=== PATIENT | female | born 1945 | race Caucasian/White ===

== ENCOUNTER 2019-02-16 17:13 | Inpatient (IN) | payer OTHER, MEDICARE | END 2019-02-21 18:43 | disposition home or self-care (01) | LOC: JER 17:13 → JERBED 19:31 → J6S 23:51 ==

== ENCOUNTER 2019-08-12 08:44 | Day surgery (SDC) | payer OTHER, MEDICARE ==
[2019-08-12 09:31] VITALS: BMI 27.4
[2019-08-12 11:11] VITALS: TEMP 98
[2019-08-12 12:10] VITALS: BP 115/73; PULSE 88
--- NOTE | 2019-08-13 18:38 | PATH ---
Surgical Pathology Report Patient Name: RUDDY WOODALL [facility]. Rec. #: [id number] /Age/Gender: 1945 (Age: 73) / F Account: [id number] Location: [facility]-ENDOSCOPY Taken: 08/12/2019 Received: 08/12/2019 Reported: 08/13/2019 Physicians: Benjamin Vick D.O. Specimen(s) Received RECTAL POLYP Clinical History Screening colonoscopy Postoperative diagnosis: Hemorrhoids, rectal polyps, diverticulosis Final Diagnosis RECTAL POLYP, BIOPSY: HYPERPLASTIC POLYP. Electronically Signed Darline Maki M.D. Gross Description Received in formalin, labeled "rectal polyp" is a sun, irregular portion of soft tissue measuring 0.5 cm. in greatest dimension. The specimen is submitted in toto in one cassette. MLSZ/08/12/2019 [facility]/08/12/2019
== END 2019-08-12 12:06 | disposition home or self-care (01) ==
LOC: JASU-ENDO 08:44
PROVIDERS: ATTEND Internal Medicine Gastroenterology
PROC: 0DBP8ZX Excision of Rectum, Via Natural or Artificial Opening Endoscopic, Diagnostic (ICD-10-PCS; principal; 2019-08-12 09:00)
DX: Z12.11 Encounter for screening for malignant neoplasm of colon (principal); K62.1 Rectal polyp; K64.8 Other hemorrhoids; K57.30 Diverticulosis of large intestine without perforation or abscess without bleeding
CPT/HCPCS: 88305-TC

== ENCOUNTER 2019-08-26 09:11 | Day surgery (SDC) | payer OTHER, MEDICARE ==
[2019-08-25 16:31] VITALS: BMI 26.6
[2019-08-26 11:17] VITALS: TEMP 97.5
[2019-08-26 11:23] VITALS: PULSE 78
[2019-08-26 11:53] VITALS: BP 123/64
--- NOTE | 2019-08-27 17:15 | PATH ---
Cytology Non-Gynecological Report Patient Name: RUDDY WOODALL [facility]. Rec. #: [id number] /Age/Gender: 1945 (Age: 73) / F Account: [id number] Location: [facility]-ENDOSCOPY Taken: 08/26/2019 Received: 08/26/2019 Reported: 08/27/2019 Physicians: Benjamin Vick D.O. Specimen(s) Received ESOPHAGEAL BRUSHING Clinical History Rule out Tonya Final Diagnosis ESOPHAGEAL BRUSHING: SATISFACTORY FOR EVALUATION. NEGATIVE FOR MALIGNANCY. BENIGN SQUAMOUS CELLS MIXED WITH ACUTE INFLAMMATION; FUNGAL HYPHAE CONSISTENT WITH TONYA SPECIES IDENTIFIED. Electronically Signed Preet Boyle M.D. Gross Description Two slides and one brush received. Four pap smear slides prepared.
--- NOTE | 2019-08-28 14:53 | PATH ---
Surgical Pathology Report Patient Name: RUDDY WOODALL [facility]. Rec. #: [id number] /Age/Gender: 1945 (Age: 73) / F Account: [id number] Location: [facility]ENDOS[facility] Taken: 08/26/2019 Received: 08/26/2019 Reported: 08/28/2019 Physicians: Benjamin Vick D.O. Specimen(s) Received A: ANTRAL NODULE B: GASTRIC POLYPS, FUNDUS/BODY Clinical History Upper abdominal pain Postoperative diagnosis: Esophagitis, gastric polyps Final Diagnosis A. 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 NO DYSPLASIA IDENTIFIED. IMMUNOHISTOCHEMICAL STAIN FOR H. PYLORI IS NEGATIVE. B. GASTRIC POLYPS, FUNDUS/BODY, BIOPSY: FUNDIC GLAND POLYP(S). IMMUNOHISTOCHEMICAL STAIN FOR H. PYLORI IS NEGATIVE. Immunohistochemical stains performed at [place], [place] ([id number]) and interpreted at [facility]. Positive and negative controls (internal if applicable) show appropriate results. Electronically Signed Darline Maki M.D. Gross Description A. Received in formalin, labeled "antral nodule biopsy" are 2 sun, irregular portions of soft tissue measuring 0.2 and 0.3 cm. in greatest dimension. The specimens are submitted in toto in one cassette. B. Received in formalin, labeled "gastric polyps biopsy" are 7 sun, irregular portions of soft tissue ranging from 0.1-0.5 cm. in greatest dimension. The specimens are submitted in toto in one cassette. 08/26/2019 [facility]08/26/2019
== END 2019-08-26 12:08 | disposition home or self-care (01) ==
LOC: JASU-ENDO 09:11
PROVIDERS: ATTEND Internal Medicine Gastroenterology
PROC: 0DB68ZX Excision of Stomach, Via Natural or Artificial Opening Endoscopic, Diagnostic (ICD-10-PCS; principal; 2019-08-26 09:45)
DX: R10.13 Epigastric pain (principal); K31.7 Polyp of stomach and duodenum; K29.50 Unspecified chronic gastritis without bleeding
CPT/HCPCS: 88104

== ENCOUNTER 2023-01-05 03:55 | Day surgery (SDC) | payer OTHER, MEDICARE ==
[2023-01-03 15:41] VITALS: BMI 25.4
[2023-01-05] MEDS ORDERED: DEXAMETHASONE SOD PHOSPHATE 10 MG/1 ML VIAL ONE (07:20)
[2023-01-05] MEDS ORDERED: LIDOCAINE HCL/PF 1% SDV 5ML VIAL ONE (07:20)
[2023-01-05] MEDS ORDERED: DEXAMETHASONE SOD PHOSPHATE 4 MG/1 ML VIAL ONE (07:20)
[2023-01-05] MEDS ORDERED: ACETAMINOPHEN 500 MG TABLET (FP) PO PRN (11:26)
[2023-01-05] MEDS ORDERED: LIDOCAINE HCL 1% PRESERVATIVE FREE - 30ML VIAL IJ ONE (11:56)
[2023-01-05] MEDS ORDERED: IOHEXOL 180 MG/1 ML ML IJ ONE (11:56)
[2023-01-05] MEDS ORDERED: DEXAMETHASONE SOD PHOSPHATE 10 MG/1 ML VIAL IVPUSH ONE (11:56)
[2023-01-05] MEDS ORDERED: ACETAMINOPHEN 500 MG TABLET (FP) ONE (12:32)
[2023-01-05 13:17] VITALS: BP 126/80; PULSE 84; RESP 18; TEMP 98
== END 2023-01-05 13:10 | disposition home or self-care (01) ==
LOC: JASU-SURG 03:55
PROVIDERS: ATTEND Pain Medicine Pain Medicine
PROC: 3E0R3BZ Introduction of Anesthetic Agent into Spinal Canal, Percutaneous Approach (ICD-10-PCS; 2023-01-05)
PROC: 3E0R33Z Introduction of Anti-inflammatory into Spinal Canal, Percutaneous Approach (ICD-10-PCS; principal; 2023-01-05 12:15)
DX: M54.12 Radiculopathy, cervical region (principal)
CPT/HCPCS: 76000-TC-FY; J1100

== ENCOUNTER 2023-02-05 19:33 | Emergency (ER) | payer OTHER, MEDICARE ==
[2023-02-05 19:57] VITALS: BP 133/72; PULSE 88; RESP 20; TEMP 98.2; BMI 25.4
== END 2023-02-05 22:24 | disposition left against medical advice (07) ==
LOC: JER 19:33
DX: R05.9 Cough, unspecified (principal); J18.9 Pneumonia, unspecified organism
CPT/HCPCS: 99281-25

== ENCOUNTER 2023-02-06 13:40 | Emergency (ER) | payer OTHER, MEDICARE ==
[2023-02-06 13:54] VITALS: BMI 25.4
[2023-02-06] MEDS ORDERED: AZITHROMYCIN 250 MG TABLET PO ONE (15:45)
[2023-02-06] MEDS ORDERED: AZITHROMYCIN 500 MG TABLET ONE (16:14)
[2023-02-06 17:42] VITALS: BP 140/62; PULSE 83; RESP 16; TEMP 97.8
== END 2023-02-06 17:45 | disposition home or self-care (01) ==
LOC: JER 13:40
DX: R05.9 Cough, unspecified (principal); J18.9 Pneumonia, unspecified organism; J45.901 Unspecified asthma with (acute) exacerbation
CPT/HCPCS: 71046-TC-FY; 99283-25

== ENCOUNTER → 2023-02-06 | Day surgery (SDC) | payer OTHER, MEDICARE ==
[2023-01-31 14:46] VITALS: BMI 25.4
[~2023-02-06] MED LIST: ACETAMINOPHEN 500 MG TABLET (FP) PO PRN; DEXAMETHASONE SOD PHOSPHATE 10 MG/1 ML VIAL ONE; DEXAMETHASONE SOD PHOSPHATE 4 MG/1 ML VIAL ONE; LIDOCAINE HCL 1% PRESERVATIVE FREE - 30ML VIAL IJ ONE; LIDOCAINE HCL/PF 1% SDV 5ML VIAL ONE
== END | disposition home or self-care (01) ==
LOC: JASU-SURG 05:15
PROVIDERS: ATTEND Pain Medicine Pain Medicine
DX: Z53.8 Procedure and treatment not carried out for other reasons (principal)
CPT/HCPCS: J1100

== ENCOUNTER 2023-02-16 05:05 | Day surgery (SDC) | payer OTHER, MEDICARE ==
[2023-02-12 11:35] VITALS: BMI 25.4
[2023-02-16] MEDS ORDERED: ACETAMINOPHEN 500 MG TABLET (FP) PO PRN (08:53)
[2023-02-16] MEDS ORDERED: DEXAMETHASONE SOD PHOSPHATE 10 MG/1 ML VIAL IM ONE (11:29)
[2023-02-16] MEDS ORDERED: IOHEXOL 180 MG/1 ML ML IJ ONE (11:32)
[2023-02-16] MEDS ORDERED: LIDOCAINE HCL 1% PRESERVATIVE FREE - 30ML VIAL IJ ONE (11:32)
[2023-02-16 13:29] VITALS: BP 126/70; PULSE 81; RESP 18; TEMP 97.9
== END 2023-02-16 12:15 | disposition home or self-care (01) ==
LOC: JASU-SURG 05:05
PROVIDERS: ATTEND Pain Medicine Pain Medicine
PROC: 3E0R3BZ Introduction of Anesthetic Agent into Spinal Canal, Percutaneous Approach (ICD-10-PCS; 2023-02-16)
PROC: 3E0R33Z Introduction of Anti-inflammatory into Spinal Canal, Percutaneous Approach (ICD-10-PCS; principal; 2023-02-16 11:15)
DX: M54.12 Radiculopathy, cervical region (principal)
CPT/HCPCS: 76000-TC-FY; J1100

== ENCOUNTER 2023-08-15 01:44 | Inpatient (IN) | payer OTHER, MEDICARE ==
[2023-08-15] MEDS ORDERED: ACETAMINOPHEN INJECTION 100 ML IVPB ONE (03:09)
[2023-08-15 03:30] LABS: URINE APPEARANCE CLEAR; URINE BILIRUBIN NEGATIVE (NEGATIVE); URINE COLOR YELLOW; URINE GLUCOSE (UA) NEGATIVE (NEGATIVE); URINE KETONE NEGATIVE (NEGATIVE); URINE LEUK ESTERASE NEGATIVE (NEGATIVE); URINE NITRITE NEGATIVE (NEGATIVE); URINE PROTEIN NEGATIVE (NEGATIVE); URINE UROBILINOGEN 0.2 mg/dL (0.2-1.0)
[2023-08-15] MEDS: ACETAMINOPHEN 1000 MG/100 ML BAG IVPB ONE (04:12)
[2023-08-15 04:24] LABS: BASO % 0.5 % (0-2.0); EOS % 7.5 % (0-4.5); HEMATOCRIT 40.9 % (32.4-45.2); HEMOGLOBIN 13.9 GM/dL (10.7-15.3); LYMPH % 24.7 % (8-40); MCH 29.9 pg (25.7-33.7); MEAN CELL VOLUME 88.1 fl (80-96); MEAN PLT VOLUME 7.6 fl (7.5-11.1); MONO % 8.9 % (3.8-10.2); NEUT % 58.4 % (42.8-82.8); PLATELET COUNT 244 10^3/uL (134-434); RBC 4.64 M/mm3 (3.60-5.2); RDW 14.4 % (11.6-15.6); WHITE BLOOD COUNT 8.1 K/mm3 (4.0-10.0)
[2023-08-15 04:37] LABS: ACTIVATED PTT 28.5 SECONDS (25.2-36.5); INR 0.9 (0.83-1.09); PROTHROMBIN TIME (PATIENT) 10.4 SEC (9.7-13.0)
[2023-08-15 06:22] LABS: ALK PHOS 81 U/L (45-117); ANION GAP 4 mmol/L (4-13); BILIRUBIN,TOTAL 0.5 mg/dL (0.2-1); BLOOD UREA NITROGEN 23.9 mg/dL (7-18); CALCIUM 9.1 mg/dL (8.5-10.1); CHLORIDE 105 mmol/L (98-107); CO2 26 mmol/L (21-32); CREATININE 0.8 mg/dL (0.55-1.3); GLUCOSE,RANDOM 105 mg/dL (74-106); POTASSIUM 6.9 mmol/L (3.5-5.1); SGOT/AST 62 U/L (15-37); SGPT/ALT 30 U/L (13-61); SODIUM 135 mmol/L (136-145); TOT PROT 7.7 g/dl (6.4-8.2)
[2023-08-15] MEDS: morphine CARPU-JECT 2 MG/1 ML DISP.SYRIN IVPUSH ONE (08:47)
[2023-08-15 09:00] LABS: POTASSIUM 4.2 mmol/L (3.5-5.1)
[2023-08-15 09:01] LABS: CALCIUM 7.9 mg/dL (8.5-10.1)
[2023-08-15 09:02] LABS: BLOOD UREA NITROGEN 19.9 mg/dL (7-18)
[2023-08-15 09:05] LABS: CREATININE 0.5 mg/dL (0.55-1.3)
[2023-08-15] MEDS ORDERED: ALBUTEROL SO4 0.083% IH SOL 2.5 MG/3 ML VIAL.NEB. NEB PRN ×2 (12:12→12:33)
[2023-08-15] MEDS ORDERED: ACETAMINOPHEN 1000 MG/100 ML BAG IVPB PRN (12:12)
[2023-08-15] MEDS ORDERED: ALBUTEROL SO4 HFA INHALER IH PRN ×2 (12:12→12:34)
[2023-08-15] MEDS ORDERED: GABAPENTIN 300 MG CAPSULE ONE (14:28)
[2023-08-15] MEDS: GABAPENTIN 300 MG CAPSULE PO SCH (14:34)
[2023-08-15 20:01] VITALS: BMI 24.9
[2023-08-15] MEDS: ROSUVASTATIN CA 20 MG TABLET PO SCH (21:44)
[2023-08-15] MEDS: BUDESONIDE/FORMETEROL FUMARATE 160/4.5 mcg INHALER IH SCH (21:44)
[2023-08-15] MEDS: MONTELUKAST NA 10 MG TABLET PO SCH (21:44)
[2023-08-15] MEDS: ESCITALOPRAM OXALATE 10 MG TABLET PO SCH (21:44)
[2023-08-16 07:41] LABS: BASO % 0.8 % (0-2.0); EOS % 8.5 % (0-4.5); HEMATOCRIT 36.2 % (32.4-45.2); HEMOGLOBIN 11.9 GM/dL (10.7-15.3); LYMPH % 31.7 % (8-40); MCH 29.4 pg (25.7-33.7); MCHC 32.9 g/dl (32.0-36.0); MEAN CELL VOLUME 89.5 fl (80-96); MEAN PLT VOLUME 7.9 fl (7.5-11.1); MONO % 10.2 % (3.8-10.2); NEUT % 48.8 % (42.8-82.8); PLATELET COUNT 208 10^3/uL (134-434); RBC 4.04 M/mm3 (3.60-5.2); RDW 13.7 % (11.6-15.6)
[2023-08-16 07:43] LABS: INR 1.03 (0.83-1.09); PROTHROMBIN TIME (PATIENT) 11.9 SEC (9.7-13.0)
[2023-08-16 07:46] LABS: ACTIVATED PTT 28.6 SECONDS (25.2-36.5)
[2023-08-16 08:00] LABS: ALBUMIN 3.3 g/dl (3.4-5.0)
[2023-08-16 08:01] LABS: BLOOD UREA NITROGEN 21.9 mg/dL (7-18); MAGNESIUM 2.2 mg/dL (1.8-2.4)
[2023-08-16 08:04] LABS: CREATININE 0.7 mg/dL (0.55-1.3)
[2023-08-16 08:05] LABS: BILIRUBIN,TOTAL 0.7 mg/dL (0.2-1); TOT PROT 6.2 g/dl (6.4-8.2)
[2023-08-16] MEDS ORDERED: DEXAMETHASONE SOD PHOSPHATE 10 MG/1 ML VIAL ONE (09:25)
[2023-08-16] MEDS ORDERED: DEXMEDETOMIDINE HCL 200 MCG/2 ML IVPB ONE (09:25)
[2023-08-16] MEDS ORDERED: ROPIVACAINE HCL 0.5% 30ML VIAL ONE (09:25)
[2023-08-16] MEDS ORDERED: ENOXAPARIN NA (PORCINE) 40 MG/0.4 ML DISP.SYRIN SQ SCH (10:00)
[2023-08-16] MEDS ORDERED: PROPOFOL 20 ML ONE (10:10)
[2023-08-16] MEDS ORDERED: MIDAZOLAM HCL 2 MG/2 ML SINGLE DOSE VIAL ONE (10:10)
[2023-08-16] MEDS: CLINDAMYCIN 600 MG PREMIX BAG IVPB ONE (10:15)
[2023-08-16] MEDS ORDERED: ALBUTEROL SO4 0.083% IH SOL 2.5 MG/3 ML VIAL.NEB. NEB PRN (11:41)
[2023-08-16] MEDS ORDERED: ACETAMINOPHEN 1000 MG/100 ML BAG IVPB PRN (11:41)
[2023-08-16] MEDS ORDERED: ALBUTEROL SO4 HFA INHALER IH PRN (11:41)
[2023-08-16] MEDS ORDERED: ONDANSETRON 4 MG/2 ML VIAL IVPUSH PRN (12:22)
[2023-08-16] MEDS: LACTATED RINGERS SOLUTION 1,000 ML IV SCH (12:32)
[2023-08-16] MEDS: GABAPENTIN 300 MG CAPSULE PO SCH (16:02)
[2023-08-16] MEDS: MONTELUKAST NA 10 MG TABLET PO SCH (22:29)
[2023-08-16] MEDS: ROSUVASTATIN CA 20 MG TABLET PO SCH (22:30)
[2023-08-16] MEDS: ESCITALOPRAM OXALATE 10 MG TABLET PO SCH (22:30)
[2023-08-16] MEDS: BUDESONIDE/FORMETEROL FUMARATE 160/4.5 mcg INHALER IH SCH (23:15)
[2023-08-17 08:27] LABS: BASO % 0.2 % (0-2.0); EOS % 0.1 % (0-4.5); HEMATOCRIT 33.9 % (32.4-45.2); HEMOGLOBIN 11.7 GM/dL (10.7-15.3); LYMPH % 12.1 % (8-40); MCH 30.3 pg (25.7-33.7); MCHC 34.4 g/dl (32.0-36.0); MEAN PLT VOLUME 8.4 fl (7.5-11.1); MONO % 11.3 % (3.8-10.2); NEUT % 76.3 % (42.8-82.8); PLATELET COUNT 207 10^3/uL (134-434); RBC 3.85 M/mm3 (3.60-5.2); RDW 14.3 % (11.6-15.6); WHITE BLOOD COUNT 10.6 K/mm3 (4.0-10.0)
[2023-08-17 08:48] LABS: BLOOD UREA NITROGEN 20.2 mg/dL (7-18); CALCIUM 8.8 mg/dL (8.5-10.1); MAGNESIUM 2.6 mg/dL (1.8-2.4)
[2023-08-17 08:49] LABS: ALBUMIN 3.2 g/dl (3.4-5.0)
[2023-08-17 08:51] LABS: PHOSPHOROUS 3.6 mg/dL (2.5-4.9)
[2023-08-17 08:52] LABS: CREATININE 0.7 mg/dL (0.55-1.3)
[2023-08-17 08:53] LABS: BILIRUBIN,TOTAL 0.5 mg/dL (0.2-1)
[2023-08-17 10:31] VITALS: BP 118/61; PULSE 80; RESP 22; TEMP 98.1
== END 2023-08-17 11:19 | disposition home or self-care (01) | DRG 512 ==
LOC: JER 01:44 → JERBED 06:31 → J4W 19:33 → OBSVTOIN 08-16 08:56
PROVIDERS: ADMIT Internal Medicine; ATTEND Internal Medicine
PROC: 0PSH04Z Reposition Right Radius with Internal Fixation Device, Open Approach (ICD-10-PCS; principal; 2023-08-16 10:00)
DX: S52.571A Other intraarticular fracture of lower end of right radius, initial encounter for closed fracture (principal); R26.81 Unsteadiness on feet; J45.909 Unspecified asthma, uncomplicated; J32.8 Other chronic sinusitis; W18.39XA Other fall on same level, initial encounter; M54.50 Low back pain, unspecified; G20.A1 Parkinson's disease without dyskinesia, without mention of fluctuations; Y93.9 Activity, unspecified; Y92.098 Other place in other non-institutional residence as the place of occurrence of the external cause; Y99.9 Unspecified external cause status
CPT/HCPCS: 0241U-QW; 36415; 70450-TC; 71046-TC-FY; 72125-TC; 73030-TC-RT-FY; 73070-TC-RT-FY; 73110-TC-RT-FY; 73130-TC-RT-FY; 76000-TC-FY; 80048; 80053; 81003; 83735; 84100; 84484; 85025; 85610; 85730; 86850; 86900; 86901; 87086; 93005; 93010; 94760; 99285-25; C1713; G0378; J0131; J1100

== ENCOUNTER 2023-12-20 04:14 | Day surgery (SDC) | payer OTHER, MEDICARE ==
[2023-12-12 15:05] VITALS: BMI 24.9
[2023-12-20] MEDS ORDERED: ACETAMINOPHEN 500 MG TABLET (FP) PO PRN (09:08)
[2023-12-20 12:56] VITALS: TEMP 97.7
[2023-12-20 13:34] VITALS: BP 126/64; PULSE 85; RESP 18
== END 2023-12-20 14:29 | disposition home or self-care (01) ==
LOC: JASU-SURG 04:14
PROVIDERS: ATTEND Pain Medicine Pain Medicine
PROC: 3E0T33Z Introduction of Anti-inflammatory into Peripheral Nerves and Plexi, Percutaneous Approach (ICD-10-PCS; 2023-12-20)
PROC: 3E0T3BZ Introduction of Anesthetic Agent into Peripheral Nerves and Plexi, Percutaneous Approach (ICD-10-PCS; principal; 2023-12-20 14:00)
DX: M54.12 Radiculopathy, cervical region (principal)
CPT/HCPCS: 76000-TC-FY

== ENCOUNTER 2024-02-21 12:26 | Inpatient (IN) | payer OTHER, MEDICARE ==
[2024-02-21] MEDS ORDERED: methylPREDNISolone NA SUCC 125 MG/2 ML VIAL ONE (13:47)
[2024-02-21] MEDS ORDERED: ALBUTEROL SO4 2.5/IPRATROPIUM 0.5 INH SOL 3 ML VIAL.NEB. NEB ONE (13:47)
[2024-02-21] MEDS: ALBUTEROL SO4 2.5/IPRATROPIUM 0.5 INH SOL 3 ML VIAL.NEB. NEB SCH ×2 (14:04→22:20)
[2024-02-21] MEDS: methylPREDNISolone NA SUCC 125 MG/2 ML VIAL IVPUSH ONE (14:04)
[2024-02-21 15:17] LABS: VENOUS BASE EXCESS 2.1 mmol/L (-2-2); VENOUS O2 SATURATION 51.5 % (70-80); VENOUS PCO2 53.5 mmHg (38-52); VENOUS PH 7.349 (7.310-7.410)
[2024-02-21 15:19] LABS: BASO % 0.7 % (0-2.0); EOS % 2.1 % (0-4.5); HEMATOCRIT 38.7 % (32.4-45.2); HEMOGLOBIN 12.7 GM/dL (10.7-15.3); LYMPH % 28.5 % (8-40); MCH 29.4 pg (25.7-33.7); MCHC 32.7 g/dl (32.0-36.0); MEAN CELL VOLUME 89.8 fl (80-96); MEAN PLT VOLUME 6.6 fl (7.5-11.1); MONO % 5.5 % (3.8-10.2); NEUT % 63.2 % (42.8-82.8); PLATELET COUNT 320 10^3/uL (134-434); RBC 4.31 M/mm3 (3.60-5.2); RDW 14.8 % (11.6-15.6); WHITE BLOOD COUNT 8.8 K/mm3 (4.0-10.0)
[2024-02-21 15:45] LABS: POTASSIUM 4.9 mmol/L (3.5-5.1)
[2024-02-21 15:46] LABS: CALCIUM 9.4 mg/dL (8.5-10.1)
[2024-02-21 15:48] LABS: ALBUMIN 3.4 g/dl (3.4-5.0); BLOOD UREA NITROGEN 26.6 mg/dL (7-18)
[2024-02-21 15:51] LABS: CREATININE 0.8 mg/dL (0.55-1.3)
[2024-02-21 15:53] LABS: BILIRUBIN,TOTAL 0.4 mg/dL (0.2-1); TOT PROT 6.6 g/dl (6.4-8.2)
[2024-02-21] MEDS: MAGNESIUM SULFATE IN WATER 2 GM/50 ML IVPB IVPB ONE (16:00)
[2024-02-21] MEDS ORDERED: MAGNESIUM SULFATE IN WATER 2 GM/50 ML IVPB IVPB ONE (16:30)
[2024-02-21] MEDS: MONTELUKAST NA 10 MG TABLET PO SCH (22:38)
[2024-02-21] MEDS: methylPREDNISolone NA SUCC 40 MG/1 ML VIAL IVPUSH SCH (22:38)
[2024-02-21] MEDS: BUDESONIDE/FORMETEROL FUMARATE 160/4.5 mcg INHALER IH SCH (22:56)
[2024-02-22 00:14] VITALS: BMI 27.1
[2024-02-22 08:04] LABS: BASO % 0.2 % (0-2.0); EOS % 0.1 % (0-4.5); HEMATOCRIT 38.5 % (32.4-45.2); HEMOGLOBIN 12.7 GM/dL (10.7-15.3); MCH 28.8 pg (25.7-33.7); MEAN CELL VOLUME 87.3 fl (80-96); MEAN PLT VOLUME 6.6 fl (7.5-11.1); NEUT % 90.7 % (42.8-82.8); PLATELET COUNT 340 10^3/uL (134-434); RBC 4.41 M/mm3 (3.60-5.2); RDW 15.1 % (11.6-15.6); WHITE BLOOD COUNT 11.5 K/mm3 (4.0-10.0)
[2024-02-22 08:30] LABS: POTASSIUM 4.5 mmol/L (3.5-5.1)
[2024-02-22 08:36] LABS: ALBUMIN 3.4 g/dl (3.4-5.0); CALCIUM 9.2 mg/dL (8.5-10.1); MAGNESIUM 3.1 mg/dL (1.8-2.4)
[2024-02-22 08:39] LABS: BILIRUBIN,TOTAL 0.5 mg/dL (0.2-1); PHOSPHOROUS 3.6 mg/dL (2.5-4.9)
[2024-02-22 08:40] LABS: CREATININE 0.9 mg/dL (0.55-1.3); TOT PROT 6.8 g/dl (6.4-8.2)
[2024-02-22] MEDS ORDERED: ROSUVASTATIN CA 20 MG TABLET PO SCH (10:00)
[2024-02-22] MEDS: ENOXAPARIN NA (PORCINE) 40 MG/0.4 ML DISP.SYRIN SQ SCH (10:21)
[2024-02-22] MEDS: ESCITALOPRAM OXALATE 10 MG TABLET PO SCH (10:21)
[2024-02-22] MEDS: GABAPENTIN 300 MG CAPSULE PO SCH (10:21)
[2024-02-22] MEDS: ALBUTEROL SO4 2.5/IPRATROPIUM 0.5 INH SOL 3 ML VIAL.NEB. NEB SCH (11:12)
[2024-02-22] MEDS: ROSUVASTATIN CA 20 MG TABLET PO SCH (21:37)
[2024-02-24 09:07] LABS: HEMATOCRIT 36.4 % (32.4-45.2); HEMOGLOBIN 12.3 GM/dL (10.7-15.3); MCH 29.6 pg (25.7-33.7); MCHC 33.8 g/dl (32.0-36.0); MEAN CELL VOLUME 87.4 fl (80-96); MEAN PLT VOLUME 7.2 fl (7.5-11.1); PLATELET COUNT 288 10^3/uL (134-434); RBC 4.16 M/mm3 (3.60-5.2); WHITE BLOOD COUNT 14.2 K/mm3 (4.0-10.0)
[2024-02-24 09:16] LABS: ACTIVATED PTT 25.7 SECONDS (25.2-36.5)
[2024-02-24 09:18] LABS: INR 0.89 (0.83-1.09); PROTHROMBIN TIME (PATIENT) 10.3 SEC (9.7-13.0)
[2024-02-24 09:25] LABS: POTASSIUM 4.6 mmol/L (3.5-5.1)
[2024-02-24 09:30] LABS: ALBUMIN 3.1 g/dl (3.4-5.0); BLOOD UREA NITROGEN 28.4 mg/dL (7-18); CALCIUM 8.6 mg/dL (8.5-10.1); MAGNESIUM 2.6 mg/dL (1.8-2.4)
[2024-02-24 09:33] LABS: CREATININE 0.8 mg/dL (0.55-1.3); PHOSPHOROUS 2.8 mg/dL (2.5-4.9)
[2024-02-24 09:34] LABS: BILIRUBIN,TOTAL 0.4 mg/dL (0.2-1); TOT PROT 6.1 g/dl (6.4-8.2)
[2024-02-24 10:19] LABS: ANISOCYTOSIS 1+; MACROCYTOSIS 0; OVALOCYTE 1+
[2024-02-24] MEDS ORDERED: ALBUTEROL SO4 0.083% IH SOL 2.5 MG/3 ML VIAL.NEB. NEB PRN (11:27)
[2024-02-24] MEDS ORDERED: ALBUTEROL SO4 0.083% IH SOL 2.5 MG/3 ML VIAL.NEB. NEB SCH (12:00)
[2024-02-24] MEDS: AZITHROMYCIN 500 MG TABLET PO SCH (12:04)
[2024-02-24] MEDS: ALBUTEROL SO4 0.083% IH SOL 2.5 MG/3 ML VIAL.NEB. NEB SCH (12:15)
[2024-02-24] MEDS: ACETYLCYSTEINE 20% 200MG/ML 4 ML VIAL *FOR ORAL / INH USE ONLY NEB SCH (12:15)
[2024-02-25 08:56] LABS: BASO % 0.1 % (0-2.0); EOS % 0.1 % (0-4.5); HEMATOCRIT 37.9 % (32.4-45.2); HEMOGLOBIN 12.9 GM/dL (10.7-15.3); LYMPH % 8.5 % (8-40); MCH 29.8 pg (25.7-33.7); MCHC 34.1 g/dl (32.0-36.0); MEAN CELL VOLUME 87.3 fl (80-96); MEAN PLT VOLUME 7.3 fl (7.5-11.1); MONO % 3.5 % (3.8-10.2); NEUT % 87.8 % (42.8-82.8); PLATELET COUNT 276 10^3/uL (134-434); RBC 4.34 M/mm3 (3.60-5.2); RDW 15.4 % (11.6-15.6); WHITE BLOOD COUNT 10.5 K/mm3 (4.0-10.0)
[2024-02-25 09:14] LABS: POTASSIUM 4.3 mmol/L (3.5-5.1)
[2024-02-25 09:15] LABS: CALCIUM 9.1 mg/dL (8.5-10.1)
[2024-02-25 09:16] LABS: BLOOD UREA NITROGEN 24.7 mg/dL (7-18)
[2024-02-25 09:19] LABS: CREATININE 0.7 mg/dL (0.55-1.3)
[2024-02-25] MEDS: methylPREDNISolone NA SUCC 40 MG/1 ML VIAL IVPUSH SCH ×2 (14:24→15:19)
[2024-02-25 14:47] VITALS: RESP 18
[2024-02-27] MEDS: predniSONE 20 MG TABLET (UD) PO SCH (12:05)
[2024-02-27 12:46] VITALS: BP 113/62; PULSE 88; TEMP 98.1
== END 2024-02-27 16:11 | disposition home or self-care (01) | DRG 203 ==
LOC: JER 12:26 → JERBED 20:19 → J7W 22:21 → OBSVTOIN 02-23 15:22
PROVIDERS: ADMIT Internal Medicine; ATTEND Internal Medicine
DX: J45.901 Unspecified asthma with (acute) exacerbation (principal); E78.5 Hyperlipidemia, unspecified; G20.A1 Parkinson's disease without dyskinesia, without mention of fluctuations; J32.8 Other chronic sinusitis; Z88.0 Allergy status to penicillin
CPT/HCPCS: 0241U-QW; 36415; 71045-TC-FY; 71046-TC-FY; 71250-TC; 80048; 80053; 82803; 83735; 83880; 84100; 85025; 85610; 85730; 93005; 93010; 94150; 94640; 99285-25; G0378

== ENCOUNTER 2024-06-05 04:24 | Day surgery (SDC) | payer OTHER, MEDICARE ==
[2024-06-05] MEDS ORDERED: ACETAMINOPHEN 500 MG TABLET (FP) PO PRN (09:01)
[2024-06-05 11:44] VITALS: RESP 18; BMI 27.1
[2024-06-05] MEDS: BUPIVACAINE HCL/PF 0.5% (5 MG/ML) 30 ML VIAL IJ ONE (13:00)
[2024-06-05 13:31] VITALS: BP 136/69; PULSE 76; TEMP 97.7
== END 2024-06-05 14:50 | disposition home or self-care (01) ==
LOC: JASU-SURG 04:24
PROVIDERS: ATTEND Pain Medicine Pain Medicine
PROC: 3E0T33Z Introduction of Anti-inflammatory into Peripheral Nerves and Plexi, Percutaneous Approach (ICD-10-PCS; 2024-06-05)
PROC: 3E0T3BZ Introduction of Anesthetic Agent into Peripheral Nerves and Plexi, Percutaneous Approach (ICD-10-PCS; principal; 2024-06-05 12:45)
DX: M47.812 Spondylosis without myelopathy or radiculopathy, cervical region (principal)
CPT/HCPCS: 76000-TC-FY

== ENCOUNTER 2024-07-17 04:21 | Day surgery (SDC) | payer OTHER, MEDICARE ==
[2024-07-11 12:07] VITALS: BMI 27.1
[2024-07-17] MEDS: BUPIVACAINE HCL/PF 0.75% 10 ML VIAL NR ONE
[2024-07-17] MEDS: DEXAMETHASONE SOD PHOSPHATE 10 MG/1 ML VIAL IVPUSH ONE
[2024-07-17] MEDS: LIDOCAINE HCL/PF 2% SDV 5ML VIAL INF ONE
[2024-07-17] MEDS: LIDOCAINE HCL 1% PRESERVATIVE FREE - 30ML VIAL IJ ONE
[2024-07-17] MEDS: IOHEXOL 180 MG/1 ML ML IJ ONE
[2024-07-17] MEDS ORDERED: ACETAMINOPHEN 500 MG TABLET (FP) PO PRN (08:40)
[2024-07-17 11:24] VITALS: BP 135/47; PULSE 75; RESP 16; TEMP 97.9
[2024-07-17] MEDS: ACETAMINOPHEN 500 MG TABLET (FP) PO ONE (11:32)
[2024-07-17] MEDS ORDERED: ACETAMINOPHEN 500 MG TABLET (FP) ONE (11:34)
== END 2024-07-17 12:00 | disposition home or self-care (01) ==
LOC: JASU-SURG 04:21
PROVIDERS: ATTEND Pain Medicine Pain Medicine
PROC: 01513ZZ Destruction of Cervical Nerve, Percutaneous Approach (ICD-10-PCS; principal; 2024-07-17 10:15)
DX: M47.812 Spondylosis without myelopathy or radiculopathy, cervical region (principal)
CPT/HCPCS: 76000-TC-FY; J1100